=== PATIENT | male | born 1995 ===

== ENCOUNTER 2022-03-12 02:33 | Emergency (ER) | payer SELFPAY ==
[2022-03-12] MEDS ORDERED: Bacitracin Oint 1 GM U/D Packet TOP ONE (02:59)
== END 2022-03-12 03:10 | disposition home or self-care (01) ==
LOC: JP.ED 02:33
DX: S20.312A Abrasion of left front wall of thorax, initial encounter (principal); S00.211A Abrasion of right eyelid and periocular area, initial encounter; F17.210 Nicotine dependence, cigarettes, uncomplicated; X58.XXXA Exposure to other specified factors, initial encounter
CPT/HCPCS: 99283